=== PATIENT | female | born 1940 | race Two or more races ===

== ENCOUNTER 2024-01-14 14:23 | Outpatient (AMB) | payer MEDICARE, MEDICAID, SELFPAY ==
--- NOTE | 2024-01-14 14:38 | PD.GSCLVISIT ---
Vital Signs - [facility] 01/14/24 14:39 Height 1.5 m Height Method Stated Weight 40.823 kg Weight Measurement Method Estimated by Patient BMI 18.1 BP 144/82 H Blood Pressure Source Automatic Cuff Blood Pressure Location Left Upper Arm Position Sitting Respiration 18 Pulse 76 Pulse Source Monitor Temp 97.6 F Temp Source Temporal Artery Scan Pulse Oximetry (%) 96 Oxygen Delivery Method Room Air Med/Allergies Allergies & Medications Allergies No Known Allergies Allergy (Verified 01/14/24 14:51) Medication Reconciliation aspirin 81 mg tablet 81 mg PO DAILY 11/20/23 [History Confirmed 01/14/24] atorvastatin 10 mg tablet 10 mg DAILY 11/20/23 [History Confirmed 01/14/24] lidocaine 5 % topical patch 1 patch top DAILY PRN LOCALIZED PAIN #15 ea 12/05/23 [Rx Confirmed 01/14/24] pantoprazole 40 mg tablet,delayed release 40 mg PO QDAY #20 tabs 12/05/23 [Rx Confirmed 01/14/24] multivitamin with iron 1 tab PO QDAY #30 tabs 12/06/23 [Rx Confirmed 01/14/24] lisinopril 20 mg tablet 20 mg PO QDAY #30 tabs 12/10/23 [Rx Confirmed 01/14/24] polyethylene glycol 3350 17 gram oral powder packet (HealthyLax) 17 g PO QDAY #30 ea 12/10/23 [Rx Confirmed 01/14/24] sennosides 8.6 mg tablet (Senna Lax) 8.6 mg PO QDAY PRN constipation #14 tabs 12/10/23 [Rx Confirmed 01/14/24] bisacodyl 10 mg rectal suppository (Dulcolax (bisacodyl)) 10 mg GA QDAY PRN Constipation 12/12/23 [History Confirmed 01/14/24] docusate sodium 100 mg tablet 100 mg PO QDAY 12/12/23 [History Confirmed 01/14/24] lidocaine 5 % topical patch 1 patch topical QDAY PRN Pain 12/12/23 [History Confirmed 01/14/24] magnesium hydroxide 400 mg/5 mL oral suspension (Milk of Magnesia) 400 mg PO QDAY PRN Constipation 12/12/23 [History Confirmed 01/14/24] mirtazapine 15 mg tablet 15 mg PO HS Depression 12/12/23 [History Confirmed 01/14/24] pantoprazole 40 mg tablet,delayed release (Protonix) 40 mg PO QDAY 12/12/23 [History Confirmed 01/14/24] sodium phosphates 19 gram-7 gram/118 mL enema (Fleet Enema) 118 ml GA QDAY PRN Constipation 12/12/23 [History Confirmed 01/14/24] thiamine HCl (vitamin B1) 100 mg tablet 100 mg PO QDAY 12/12/23 [History Confirmed 01/14/24] MA Intake Visit Data Collection New Patient or Established: Established Patient (seen at [facility] within 3 years) Seen by Clinical Staff ONLY (RN/MA): No Pain Present Currently: No Sales Promoter Required: Yes PCP or OBGYN visit in last 3 months: Yes Hx Now: No Do You Feel Safe at Home: Yes Authorities Contacted: N/A Smoking Status Smoking Status: Never smoker Immunization / Flu Flu Vaccine in the Last 12 Months: No Flu Vaccine Exclusion Criteria: No Exclusion Criteria Past Medical History Past Medical History NEUROLOGIC: Negative Seizures CARDIAC: Positive Hypercholesterolemia and Hypertension; Negative Cardiac Disorders or Congestive Heart Failure RESPIRATORY: Negative Chronic Obstructive Pulmonary Disease (COPD) or Asthma GASTROINTESTINAL: Positive Gastroesophageal Reflux Disease GENITOURINARY: Positive Inguinal Hernia; Negative Renal Disease ENDOCRINE: Negative Diabetes Mellitus Type 1 or Diabetes Mellitus Type 2 HEMATOLOGIC: Positive Anemia; Negative Sickle Cell Disease PSYCHO/SOCIAL: Positive Depression OTHER HISTORY: Negative Blood Transfusions, Blood Transfusion Reaction or Anesthesia Reactions Surgical History SURGICAL: Positive Abdominal Surgery and Bowel Surgery Social History SMOKING STATUS: Smoking status: Never smoker ALCOHOL: Alcohol Intake: Never HOUSING: Housing: House LIVES WITH: Lives With: Staff-Care Providers HPI HPI Narrative 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 During last hospitalization pt had a pouch placed to the midline wound to collect drainage; she states it has not had any output for the last month and she would like to have it removed. She also has not had any drainage from the right inguinal incision. Pt states she feels well overall with no pain, tolerating diet and having regular BMs, looking forward to resuming her usual activities ROS Review of Systems Systems Reviewed: All systems reviewed, normal except as documented Objective/Exam General General Appearance: alert, cooperative and well groomed Resp Respiratory exam: Absent respiratory distress Abdominal Abdominal exam: Present soft and incision (midline incision healing with granulation tissue at the inferior aspect, no erythema or drainage; right inguinal incision healing well with no erythema or drainage); Absent distention or tenderness Assessment & Plan Diagnosis / Problem List (1) Post surgical complication: Status: Acute Assessment & Plan: 83F with HTN, HLD who initially presented with a strangulated femoral hernia s/p emergent reduction, primary repair and small bowel resection 11/18, with signs of persistent SBO postop requiring laparotomy, revision of ileo-ileal anastomosis 11/25, recovering well overall Plan: OK to resume usual activities Wound pouch removed Follow up as needed Orders: Orders Silver nitrate applicator topical stick Today Advanced Care Planning Advance care planning discussed with:: patient Office Procedures GNS Level of Care Nursing/Assessment Patient Status: Established Patient Nursing Assessment/Reassesment: Medication Reconciliation, Update PMH in EMR and Vital Signs Coordination of Care: Complex Care and Chronic Disease 1-5, Consent,records obtained, informed consent, Education Simp Pt/Fam, 1 Ins Authorization and Staff clarify orders Special Needs: Language special needs Miscellaneous Interventions: Dressing placement or removal Established Patient Charge Established Patient Point Assignment: 120 Established Patient Point Charge: EP Level 4 (120-155) Surgical Proc/IM SQ injection Minor Surgical Procedure: Yes (SILVER NITRATE) Medication Given Medication Given Medication Given: Yes Documented Dose Given: 1 Route: Infiitration Office Meds silver nitrate applicators 75 %-25 % topical stick Performing Provider: Ila Campa MD Performing Location: [facility] Administered by: Ila Campa MD on 01/14/24 15:18 Dose Route Admin Location Dispensed Lot Number Expiration Date [facility] [employer] 1 ea topical 1 ea [id number] 03/14/24 [address]-3 [employer] Patient Portal Questionaires Social History Living Situation History Housing: House Tobacco History Smoking Status: Never smoker Alcohol History Alcohol Intake: Never Domestic Abuse History Do You Feel Safe at Home: Yes Review of Systems Report any current symptoms Only answer those that you have currently: Past Medical History Past Medical History Have you ever been diagnosed with any of the following: Neurological Problems Seizures: No Cardiology Problems Hypercholesterolemia: Yes Congestive Heart Failure: No Hypertension: Yes Respiratory Problems Chronic Obstructive Pulmonary Disease (COPD): No Asthma: No Stomache/Intestinal Problems Gastroesophageal Reflux Disease: Yes Genital/Urinary Problems Renal Disease: No Inguinal Hernia: Yes Endocrine Problems Diabetes Mellitus Type 1: No Diabetes Mellitus Type 2: No Blood Problems Anemia: Yes Sickle Cell Disease: No Psychologic Problems Depression: Yes Other Problems Blood Transfusions: No Blood Transfusion Reaction: No Anesthesia Reactions: No
[2024-01-14 14:39] VITALS: BP 144/82; PULSE 76; RESP 18; TEMP 36.4; O2SAT 96; BMI 18.1
== END 2024-01-14 15:02 | disposition home or self-care (01) ==
LOC: HODSRG 14:23
PROVIDERS: Supervising Provider Surgery; Visit Provider Surgery
DX: L92.9 Granulomatous disorder of the skin and subcutaneous tissue, unspecified (principal)
CPT/HCPCS: 17250; 99214; A9270; G0463

== ENCOUNTER 2024-01-27 10:02 | Emergency (ER) | payer MEDICARE, MEDICAID, SELFPAY ==
[2024-01-27 10:07] VITALS: BP 152/82; PULSE 82; RESP 15; TEMP 36.5; O2SAT 96
[2024-01-27 10:25] VITALS: PULSE 993; RESP 20; O2SAT 97
--- NOTE | 2024-01-27 11:31 | EDNOTE_ITS ---
ED General RME/HPI General Chief complaint: Wound/Laceration Stated complaint: INCISION WOUND/PAIN POST HERNIA SURGERY Time Seen by Provider: 01/27/24 11:30 Arrival date/time: 01/27/24 10:02 CC: Wound dehiscence HPI patient presents the ER via EMS with stable vital signs for wound dehiscence, reported by the nurse at the [facility] where the patient resides that her surgical site has opened up. There is considerable amount of oozing per report. The patient denies fever chills chest pain shortness of breath or difficulty breathing. Patient was admitted to this facility Dr. Lin was the surgeon for hernia repair in early November. Patient has no other complaints. Related Data Home Medications ?Medication ?Instructions ?Recorded ?Confirmed aspirin 81 mg tablet 81 mg PO DAILY 11/20/23 01/14/24 atorvastatin 10 mg tablet 10 mg DAILY 11/20/23 01/14/24 bisacodyl 10 mg rectal suppository 10 mg MA QDAY PRN Constipation 12/12/23 01/14/24 (Dulcolax (bisacodyl)) docusate sodium 100 mg tablet 100 mg PO QDAY 12/12/23 01/14/24 lidocaine 5 % topical patch 1 patch topical QDAY PRN Pain 12/12/23 01/14/24 magnesium hydroxide 400 mg/5 mL 400 mg PO QDAY PRN Constipation 12/12/23 01/14/24 oral suspension (Milk of Magnesia) mirtazapine 15 mg tablet 15 mg PO HS Depression 12/12/23 01/14/24 pantoprazole 40 mg tablet,delayed 40 mg PO QDAY 12/12/23 01/14/24 release (Protonix) sodium phosphates 19 gram-7 118 ml MA QDAY PRN Constipation 12/12/23 01/14/24 gram/118 mL enema (Fleet Enema) thiamine HCl (vitamin B1) 100 mg 100 mg PO QDAY 12/12/23 01/14/24 tablet Previous Rx's ?Medication ?Instructions ?Recorded lidocaine 5 % topical patch 1 patch top DAILY PRN LOCALIZED 12/05/23 PAIN #15 ea pantoprazole 40 mg tablet,delayed 40 mg PO QDAY #20 tabs 12/05/23 release multivitamin with iron 1 tab PO QDAY #30 tabs 12/06/23 lisinopril 20 mg tablet 20 mg PO QDAY #30 tabs 12/10/23 polyethylene glycol 3350 17 gram 17 g PO QDAY #30 ea 12/10/23 oral powder packet (HealthyLax) sennosides 8.6 mg tablet (Senna 8.6 mg PO QDAY PRN constipation 12/10/23 Lax) #14 tabs Allergies Allergy/AdvReac Type Severity Reaction Status Date / Time No Known Allergies Allergy Verified 01/14/24 14:51 Review of Systems Review of Systems Narrative Review of Systems: GEN: No fever, no chills, no weight loss EYES: No discharge, no visual changes, no pain HEENT: No ear pain, no congestion, no sore throat PULM: No shortness of breath, no cough, no congestion CV: No chest pain, no dyspnea on exertion, no palpitations GI: No nausea, no vomiting, no diarrhea, no pain, no constipation : No frequency, no urgency, no dysuria MUSC/SKEL: No joint pain, no back pain SKIN: No rash PSYCH: No hallucinations, no depression HEME/LYMPH: No easy bleeding or bruising tendencies NEURO: No weakness, no headache Past Medical History Past Medical History NEUROLOGIC: Negative Seizures CARDIAC: Positive Hypercholesterolemia and Hypertension; Negative Cardiac Disorders or Congestive Heart Failure RESPIRATORY: Negative Chronic Obstructive Pulmonary Disease (COPD) or Asthma GASTROINTESTINAL: Positive Gastroesophageal Reflux Disease GENITOURINARY: Positive Inguinal Hernia; Negative Renal Disease ENDOCRINE: Negative Diabetes Mellitus Type 1 or Diabetes Mellitus Type 2 HEMATOLOGIC: Positive Anemia; Negative Sickle Cell Disease PSYCHO/SOCIAL: Positive Depression OTHER HISTORY: Negative Blood Transfusions, Blood Transfusion Reaction or Anesthesia Reactions Surgical History SURGICAL: Positive Abdominal Surgery and Bowel Surgery Social History SMOKING STATUS: Never smoker ED Exam Narrative Physical exam: [General: Thin, deconditioned, not in any acute distress Head normocephalic HEENT: Within acceptable limits Neck is supple nontender Chest equal chest rise nontender to palpation Respiratory: Clear to auscultation no wheezes crackles or rubs CV: Rate rhythm is regular no murmurs rubs or clicks Abdomen is distended secondary to body habitus soft nontender no masses positive bowel sounds all 4 quadrants Back: No CVA tenderness no spinous process tenderness from cervical spine thoracic and lumbar spine Skin: Vertical incision to the low center abdomen there is approximately 1.5 cm of dehiscence at the distal portion, there is no surrounding erythema edema or exudate. Otherwise skin is intact no petechiae rash induration ulceration or crepitus Extremities: Moving all extremity against resistance cap refill less than 2 seconds neurosensory intact Neuro: Awake alert oriented x2, person and place, Glascow coma 15 no focal deficits] Course Quality Measures none Orders Category Date Time Status CBC Stat Lab 01/27/24 12:00 Completed Vital Signs Vital signs: Vital Signs Temperature 97.7 F 01/27/24 10:07 Pulse Rate 82 01/27/24 10:07 Respiratory Rate 15 01/27/24 10:07 Blood Pressure 152/82 H 01/27/24 10:07 Pulse Oximetry (%) 96 01/27/24 10:07 Oxygen Delivery Method Room Air 01/27/24 10:07 [facility] Patient data External records reviewed:: [facility] previous records and EMS form Clinical information provided by:: patient and EMS Social determinants that could affect healthcare access:: none Patient has the following chronic illnesses:: Anemia depression hypertension reflux. How is presenting disease/condition affected by chronic disease/condition?: u neffected by Evaluation data The following diagnostics were reviewed and interpreted by me:: lab results Lab and/or radiology exams considered but not ordered:: CBC shows no leukocytosis anemia thrombocytopenia Interpretation Summary: Small dehiscence from the vertical abdominal incision, patient will need regular wound care for follow-up. Medications Medications considered but not ordered:: None Medication administrations:: None Consultations Consultation(s) initiated? (list below): No Diagnosis Differential Diagnosis ED Complaint MDM: Wound dehiscence wound cellulitis wound abscess Most likely diagnosis given after review of the tests above:: Wound dehiscence Admission Indicated Admission indicated?: not indicated Explain why admission is indicated or not indicated:: Stable for outpatient follow-up Admission Request Was there a request for admission?: No Disposition Plan Disposition Plan: Discharge Discharge Attestation Discharge Attestation: The patient and all family members were given an opportunity to ask questions and understood the discharge instructions. Discharge instructions specifically effects, indications for sooner follow up or return to the emergency department, and the expected course of current diagnosis. Patient condition: Stable Medical Decision Making Differential Diagnosis Differential Diagnosis: Wound dehiscence wound cellulitis wound abscess Lab Data 01/27/24 12:00 Labs: Lab Results 01/27/24 Range/Units 12:00 WBC 6.4 (3.6-11.0) Thou/mm3 RBC 3.63 L (4.00-5.20) Miln/mm3 Hgb 10.1 L (12.0-16.0) g/dL Hct 31.8 L (36.0-46.0) % MCV 88 (80-100) fL MCH 27.8 (25.0-35.0) pg MCHC 31.8 (31.0-37.0) g/dl RDW Std Deviation 47.4 H (36.4-46.3) fL Plt Count 351 (140-440) Thou/mm3 Neut % (Auto) 63 (37-80) % Lymph % (Auto) 28 (10-50) % Glades % (Auto) 8 (0-12) % Eos % (Auto) 1 (0-10) % Baso % (Auto) 0 (0-2.5) % Neut # (Auto) 4.0 (1.8-7.7) Thou/mm3 Lymph # (Auto) 1.8 (1.0-4.8) Thou/mm3 Glades # (Auto) 0.5 (0.0-0.8) Thou/mm3 Eos # (Auto) 0.1 (0.0-0.5) Thou/mm3 Baso # (Auto) 0.0 (0.0-0.2) Thou/mm3 Immature Gran # (Auto) 0.01 H (0.00-0.00) Thou/mm3 Absolute Nucleated RBC 0.00 (0.00-0.00) Thou/mm3 Immature Gran % 0 (0-0) % Nucleated RBC % 0 (0) /100 WBC Discharge Plan Plan Patient Disposition: HOME (Self Care) Patient condition on transfer: Stable Prescriptions/Referrals Prescriptions/Med Rec: No Action magnesium hydroxide [Milk of Magnesia] 400 mg/5 mL Suspension 400 mg PO QDAY PRN (Reason: Constipation) Rx Instructions: Give 30ml by mouth every 72 hours as needed for bowel management No BM for 3 days. bisacodyl [Dulcolax (bisacodyl)] 10 mg Suppository 10 mg MA QDAY PRN (Reason: Constipation) Rx Instructions: Insert 1 suppository rectally every 72 hours as needed for Bowel Management to be administered the following shift if MOM is ineffective. pantoprazole [Protonix] 40 mg Tablet,Delayed Release (Dr/Ec) 40 mg PO QDAY lidocaine 5 % Adhesive Patch,Medicated 1 patch TOPICAL QDAY PRN (Reason: Pain) Rx Instructions: leave on most painful area for up to 12 hrs Fleet Enema 19-7 gram/118 mL Enema 118 ml MA QDAY PRN (Reason: Constipation) Rx Instructions: Insert 1 dose rectally every 72 hours as needed for Bowel Management to be administered the following shift if Dulcolax suppository is ineffective, notify MD if no result. docusate sodium 100 mg Tablet 100 mg PO QDAY thiamine HCl (vitamin B1) 100 mg Tablet 100 mg PO QDAY mirtazapine 15 mg tablet 15 mg PO HS atorvastatin 10 mg tablet 10 mg DAILY Patient Comments: TAKE 1 TABLET BY MOUTH ONCE DAILY FOR CHOLESTEROL aspirin 81 mg Tablet 81 mg PO DAILY lidocaine 5 % Adhesive Patch,Medicated 1 patch top DAILY PRN (Reason: LOCALIZED PAIN) Qty: 15 0RF pantoprazole 40 mg tablet,delayed release (DR/EC) 40 mg PO QDAY Qty: 20 0RF multivitamin with iron Tablet 1 tab PO QDAY Qty: 30 0RF lisinopril 20 mg tablet 20 mg PO QDAY Qty: 30 0RF Rx Instructions: Hold if BP below 120/80 polyethylene glycol 3350 [HealthyLax] 17 gram Powder In Packet 17 g PO QDAY Qty: 30 0RF sennosides [Senna Lax] 8.6 mg tablet 8.6 mg PO QDAY PRN (Reason: constipation) Qty: 14 0RF Referrals: Ila Campa MD [Physician] - In 1 week Problem List Clinical Impression: Abdominal wound dehiscence Patient/Caregiver Discharge Instructions Education Materials: ED Wound Check (No Infection) Additional Instructions: Keep the site clean and dry change dressing once a day. If there are any signs of infection such as redness pus or swelling follow-up with your primary care doctor. Follow-up with Dr. Lin, surgeon for continued maintenance. Print Language: Thai Stand Alone Forms: Meredith Award Info., Patient Portal Info Letter PA/PAIGE Supervising Physician SAURAV/PAIGE Supervising Physician: Dominick Vance ENP
[2024-01-27 12:19] LABS: Basophils % (Auto) 0 % (0-2.5); Eosinophils # (Auto) 0.1 Thou/mm3 (0.0-0.5); Eosinophils % (Auto) 1 % (0-10); Hematocrit 31.8 % (36.0-46.0); Hemoglobin 10.1 g/dL (12.0-16.0); Immature Granulocytes % (Auto) 0 % (0-0); Immature Granulocytes Auto 0.01 Thou/mm3 (0.00-0.00); Lymphocytes # (Auto) 1.8 Thou/mm3 (1.0-4.8); Lymphocytes % (Auto) 28 % (10-50); Mean Corpuscular HGB Conc 31.8 g/dl (31.0-37.0); Mean Corpuscular Hemoglobin 27.8 pg (25.0-35.0); Mean Corpuscular Volume 88 fL (80-100); Monocytes # (Auto) 0.5 Thou/mm3 (0.0-0.8); Monocytes % (Auto) 8 % (0-12); Neutrophils % (Auto) 63 % (37-80); Nucleated Red Blood Cell % 0 /100 WBC (0); Platelet Count 351 Thou/mm3 (140-440); RDW Standard Deviation 47.4 fL (36.4-46.3); Red Blood Count 3.63 Miln/mm3 (4.00-5.20); White Blood Count 6.4 Thou/mm3 (3.6-11.0)
[2024-01-27 12:21] VITALS: BP 149/70; PULSE 70; RESP 18; TEMP 36.7; O2SAT 97
--- NOTE | 2024-01-27 12:49 | PC.CC ---
VISUAL BASIC .NET DEVELOPER CC engaged by bedside RN for transport for pt back to [facility]. [id number]-VISUAL BASIC .NET DEVELOPER CC spoke with bedside RN Rona at [facility]. Facility able to transport pt back to facility. Will send van for pt. Request RN report @ [phone].
== END 2024-01-27 15:28 | disposition home or self-care (01) ==
PROVIDERS: Registered Nurse General Practice; Emergency Provider Emergency Medicine; PCP Physician Assistant; Referring Provider Emergency Medicine
DX: T81.31XA Disruption of external operation (surgical) wound, not elsewhere classified, initial encounter (principal); Y83.8 Other surgical procedures as the cause of abnormal reaction of the patient, or of later complication, without mention of misadventure at the time of the procedure
CPT/HCPCS: 36415; 85025; 99283